=== PATIENT | female | born 1965 | race Caucasian/White ===

== ENCOUNTER 2018-06-29 15:06 | Outpatient (REF) | payer MEDICARE, MEDICAID, SELFPAY ==
[2018-06-29 22:02] LABS: ALT 45 U/L (12-78); AST 42 U/L (15-37); Albumin 3.5 g/dL (3.4-5.0); Alkaline Phosphatase 108 U/L (46-116); Anion Gap 5.9 mmol/L (3-11); BUN 26 mg/dL (7-18); Bilirubin, Total 0.3 mg/dL (0.2-1.0); CO2 28.1 mmol/L (21.0-32.0); CREATININE 1.23 mg/dL (0.55-1.02); Calcium 8.4 mg/dL (8.5-10.1); Chloride 103 mmol/L (98-107); Estimated GFR 45.67 (mL/min/1.73m2); Glucose 85 mg/dL (70-100); Potassium 4.9 mmol/L (3.5-5.1); Sodium 137 mmol/L (136-145); TSH (W/Ref FT4) 29.92 uIU/mL (0.358-3.74)
[2018-06-29 22:30] LABS: HCT 56.6 % (36.0-46.0); Mean Corp. HGB Concentration 34.6 g/dL (32.0-36.0); Mean Corpuscular Hemoglobin 35.4 pg (27.0-33.0); Mean Corpuscular Volume 102.2 fL (80-95); Mean Platelet Volume 11.3 fL (8.0-11.0); Platelet Count 150 x1000/uL (130-400); RBC 5.54 m/cumm (4.00-5.20); RBC Distribution Width 14.5 % (11.7-14.6); White Blood Cell Count 5.53 k/cumm (4.4-10.8)
[2018-06-29 22:34] LABS: HGB 19.6 g/dL (12.0-15.5)
[2018-06-29 22:45] LABS: FREE T4 0.77 ng/dL (0.76-1.46)
== END 2018-06-29 15:07 ==
LOC: NCHCN 15:06
PROVIDERS: PCP Family Medicine; Visit Provider Family Medicine
DX: D64.9 Anemia, unspecified (principal); I27.89 Other specified pulmonary heart diseases; R10.9 Unspecified abdominal pain; E03.9 Hypothyroidism, unspecified
CPT/HCPCS: 80053; 85027; 84439; 84443

== ENCOUNTER 2019-08-31 11:32 | Outpatient (REF) | payer MEDICARE, MEDICAID, SELFPAY ==
--- NOTE | 2019-08-31 10:30 | SKI_PTH ---
PATIENT: ANGELINA VAZQUEZ LOC: [facility] U#:[id number] AGE/SX: 54/F ROOM: RE08/31/[address]: Tasneem Rios V : 1965 BED: DIS: 08/31/2019 SPEC #: [id number] RECD: 09/03/19 12:34 STATUS: NAVYA RELiseth #: [id number] CORAZON: 08/31/19 10:[address]: Tasneem Rios V DEPT: Surgical Specimen RECD BY: Beckie Hart Tissues: 1 - SKIN BIOPSY(SHAVE/PUNCH) Procedures: SKIN LEVEL 4 Comments: [id number]
== END 2019-08-31 11:52 ==
LOC: NCHCN 11:32
PROVIDERS: PCP Family Medicine; Visit Provider Family Medicine
DX: L85.9 Epidermal thickening, unspecified; L98.8 Other specified disorders of the skin and subcutaneous tissue
CPT/HCPCS: 88305

== ENCOUNTER 2019-09-19 00:30 | Outpatient (CLI) | payer MEDICARE, MEDICAID, SELFPAY ==
--- NOTE | 2019-09-19 08:00 | DI.US_ITS ---
EXAM: US ABDOMEN CLINICAL HISTORY: ABD PAIN, R10.9 TECHNIQUE: Ultrasound performed using standard protocol. COMPARISON: ABDOMEN ULTRASOUND (P) from 09/24/2014 FINDINGS: A limited examination was obtained in this patient who is mentally challenged. The aorta is poorly s een. The vena cava is intact. Increased echogenicity is noted in the liver consistent with fatty inf iltration. Portal vein is intact. There is no evidence of a Ruiz's sign. There are apparent smal l gallstones in the dependent portion of the gallbladder. The gallbladder wall is 1.8 mm in thicknes s. The common duct could not be evaluated. The pancreas was not visualized. The spleen measures 8. 9 cm in length and is unremarkable. The kidneys are intact. There is no evidence of abdominal free fluid. IMPRESSION: A limited study reveals what appears to represent small gallstones in the gallbladder. There is nothi ng to suggest biliary obstruction.
== END 2019-09-19 00:50 ==
PROVIDERS: PCP Family Medicine; Visit Provider Family Medicine
DX: R10.9 Unspecified abdominal pain (principal); K80.70 Calculus of gallbladder and bile duct without cholecystitis without obstruction
CPT/HCPCS: 76700

== ENCOUNTER 2020-08-14 14:48 | Outpatient (REF) | payer MEDICARE, MEDICAID, SELFPAY | END 2020-08-14 15:08 | LOC: NCHCN 14:48 | PROVIDERS: PCP Family Medicine; Visit Provider Family Medicine | DX: B37.89 Other sites of candidiasis (principal); Z93.0 Tracheostomy status | CPT/HCPCS: 87077; 87070; 87186; 87205 ==

== ENCOUNTER 2020-10-21 08:23 | Emergency (ER) | payer MEDICARE, MEDICAID, SELFPAY ==
[2020-10-21] VITALS (42 sets, daily range): BP systolic 117–158; BP diastolic 55–130; PULSE 57–128; RESP 11–44; TEMP 36.5; O2SAT 56–95
--- NOTE | 2020-10-21 08:31 | ED.GENADUL_ITS ---
Discharge Plan Disposition Patient Disposition: HOME Condition: Improving Discharge Details Clinical Impression: Vomiting, Hyponatremia, Low thyroid stimulating hormone (TSH) level Primary Care Provider: Tasneem Rios V ED Provider: Maddy Marquez Home Meds and New Rx's Prescriptions: Continued levothyroxine 175 mcg tablet 175 mcg PO DAILY RF: 0 albuterol sulfate 2.5 mg /3 mL (0.083 %) solution for nebulization 2.5 mg IH TID RF: 0 trazodone 50 mg tablet 50 mg PO HS RF: 0 omeprazole [Prilosec] 20 mg capsule,delayed release(DR/EC) 40 mg PO DAILY RF: 0 ibuprofen 600 mg tablet 600 mg PO BID PRNRF: 0 carbamide peroxide [Debrox] 6.5 % drops 5 drp OT DAILY RF: 0 triamcinolone acetonide 0.05 % ointment 1 applic TP BID RF: 0 gvgfazhc-pzfzxfctq-XA Drops,Suspension 4 drp OT QID RF: 0 acetaminophen 500 mg tablet 1,000 mg PO Q6H PRNRF: 0 furosemide 20 mg tablet 20 mg PO DAILY RF: 0 guaifenesin 600 mg tablet extended release 12hr 600 mg PO BID RF: 0 fluconazole [Diflucan] 150 mg tablet 150 mg PO Q3D Qty: 2 RF: 0 allopurinol 100 MG tablet 100 mg PO DAILY RF: 0 Discharge Instructions Instructions: Hyponatremia (ED), Hypothyroidism (ED), Acute Nausea and Vomiting (ED) Additional Instructions: Drink plenty of fluids and get plenty of rest. Try to supplement some salt in your diet with cheese, eggs, etc. Take the Zofran as needed and directed for nausea and vomiting. Call your primary care doctor's office today or tomorrow to schedule a follow-up appointment for reevaluation and to discuss decreasing your Synthroid dosing as you are thyroid hormone level was high and your thyroid-stimulating hormone level was low. Return immediately to the emergency department if you develop any worsening or new concerning symptoms. Discharge Data Discharge Physician: Maddy Marquez Medical Decision Making 09 -- 55-year-old female with a history of Down syndrome, Eisenmenger syndrome, congestive heart failure, hypothyroidism, hyponatremia, seizures, tracheostomy presents for vomiting since last night. Vitals within normal limits. Patient appears nontoxic on arrival. Her abdomen is soft and nontender. She has dry mucous membranes. Differential diagnosis includes acute viral illness, UTI, electrolyte abnormality. History and presentation not consistent with ACS. Will place an IV, bolus IV fluids, screening labs, urinalysis and give fluids and Zofran and reassess. 1100 --labs reviewed. Normal white blood cell count. Sodium 126, was 139 in February 2019. Magnesium 1.2 will replete. Troponin negative. TSH low and free T4 high, likely needs Synthroid decreased. Urinalysis negative for infection. Patient reassessed and guardian states she seems much improved. She was able to take sips of water and has had no further vomiting here. She remains hemodynamically stable. Guardian would prefer patient to go home if possible. Case discussed with hospitalist who recommends doing p.o. challenge with food and rechecking a sodium and if improved to about 130 and patient remains stable, can plan for discharge to home. 1245 --repeat sodium 130. Patient is able to eat yogurt and drink here and no further vomiting. Guardian feels comfortable taking patient home. Also discussed that her Synthroid dose should probably be decreased to 150 mcg daily which guardian states she has at home. Advised to discuss continued dosing with the primary care doctor and for re-evaluation and recheck of her TSH and T4 soon. Usual and customary return precautions given prior to discharge. Medical Records Medical records reviewed: Yes I reviewed the patient's medical records. Lab Data Lab results reviewed: Yes I reviewed the patient's lab results. Labs: Laboratory Tests Range/Units 10/21/20 10/21/20 10/21/20 08:50 08:50 08:50 WBC (4.4-10.8) 10^3/uL 8.09 RBC (3.93-5.22) 10^6/uL 4.78 Hgb (11.2-15.7) g/dL 16.6 H Hct (36.0-46.0) % 46.0 MCV (80-95) fL 96.2 H MCH (27.0-33.0) pg 34.7 H MCHC (32.0-36.0) % 36.1 H RDW (11.7-14.6) % 12.0 Plt Count (130-400) 10^3/uL 151 MPV (8.0-11.0) fL 10.8 Immature Gran % 0.5 Neutrophils % 85.9 Lymphocytes % 6.6 Monocytes % 6.3 Eosinophils % 0.1 Basophils % 0.6 Nucleated RBC % % 0 Absolute Neutrophils (1.2-6.7) 10^3/uL 6.95 H Absolute Lymphocytes (1.2-3.4) 10^3/uL 0.53 L Absolute Monocytes (0.1-0.8) 10^3/uL 0.51 Absolute Eosinophils (0.0-0.7) 10^3/uL 0.01 Absolute Basophils (0.0-0.2) 10^3/uL 0.05 PT (9.3-11.0) sec 12.4 H INR (0.9-1.1) 1.2 H APTT (21.0-27.5) sec 26.2 Sodium (136-145) mmol/L 126 L Potassium (3.5-5.1) mmol/L 4.4 Chloride (98-107) mmol/L 91 L Carbon Dioxide (21.0-32.0) mmol/L 25.1 Anion Gap (3-11) mmol/L 9.9 BUN (7-18) mg/dL 15 Creatinine (0.55-1.02) mg/dL 1.01 Estimated GFR/1.73 m2 (mL/min/1.73m2) 56.91 Glucose (74-106) mg/dL 102 Calcium (8.5-10.1) mg/dL 8.5 Magnesium (1.8-2.4) mg/dL 1.2 L Total Bilirubin (0.2-1.0) mg/dL 0.8 AST (15-37) U/L 40 H ALT (14-59) U/L 44 Alkaline Phosphatase (46-116) U/L 121 H Troponin I (<0.06) ng/mL < 0.05 Total Protein (6.4-8.2) g/dL 7.2 Albumin (3.4-5.0) g/dL 3.2 L TSH (0.36-3.74) uIU/mL Free T4 (0.76-1.46) ng/dL Urine Color (Yellow) Urine Clarity (Clear) Urine pH (5-8) Ur Specific [place] (1.005-1.025) Urine Protein (Negative) mg/dL Urine Ketones (Negative) mg/dL Urine Blood (Negative) Urine Nitrite (Negative) Urine Bilirubin (Negative) Urine Urobilinogen (Up TO 0.2) EU/dL Ur Leukocyte Esterase (Negative) Urine RBC (0-2) HPF Urine WBC (0-5) HPF Ur Epithelial Cells (Negative) HPF Urine Crystals (Negative) HPF Urine Bacteria (Negative) HPF Urine Casts (Negative) LPF Urine Mucus (Negative) Ur Culture Indicated? Urine Glucose (Negative) mg/dL Range/Units 10/21/20 10/21/20 10/21/20 08:56 10:10 12:45 WBC (4.4-10.8) 10^3/uL RBC (3.93-5.22) 10^6/uL Hgb (11.2-15.7) g/dL Hct (36.0-46.0) % MCV (80-95) fL MCH (27.0-33.0) pg MCHC (32.0-36.0) % RDW (11.7-14.6) % Plt Count (130-400) 10^3/uL MPV (8.0-11.0) fL Immature Gran % Neutrophils % Lymphocytes % Monocytes % Eosinophils % Basophils % Nucleated RBC % % Absolute Neutrophils (1.2-6.7) 10^3/uL Absolute Lymphocytes (1.2-3.4) 10^3/uL Absolute Monocytes (0.1-0.8) 10^3/uL Absolute Eosinophils (0.0-0.7) 10^3/uL Absolute Basophils (0.0-0.2) 10^3/uL PT (9.3-11.0) sec INR (0.9-1.1) APTT (21.0-27.5) sec Sodium (136-145) mmol/L 130 L Potassium (3.5-5.1) mmol/L Chloride (98-107) mmol/L Carbon Dioxide (21.0-32.0) mmol/L Anion Gap (3-11) mmol/L BUN (7-18) mg/dL Creatinine (0.55-1.02) mg/dL Estimated GFR/1.73 m2 (mL/min/1.73m2) Glucose (74-106) mg/dL Calcium (8.5-10.1) mg/dL Magnesium (1.8-2.4) mg/dL Total Bilirubin (0.2-1.0) mg/dL AST (15-37) U/L ALT (14-59) U/L Alkaline Phosphatase (46-116) U/L Troponin I (<0.06) ng/mL Total Protein (6.4-8.2) g/dL Albumin (3.4-5.0) g/dL TSH (0.36-3.74) uIU/mL 0.01 L Free T4 (0.76-1.46) ng/dL 1.98 H Urine Color (Yellow) Yellow Urine Clarity (Clear) Clear Urine pH (5-8) 6.5 Ur Specific [place] (1.005-1.025) 1.015 Urine Protein (Negative) mg/dL Trace H Urine Ketones (Negative) mg/dL Negative Urine Blood (Negative) Trace-lysed H Urine Nitrite (Negative) Negative Urine Bilirubin (Negative) Negative Urine Urobilinogen (Up TO 0.2) EU/dL 0.2 Ur Leukocyte Esterase (Negative) Negative Urine RBC (0-2) HPF 3-5 H Urine WBC (0-5) HPF 0-2 Ur Epithelial Cells (Negative) HPF Negative Urine Crystals (Negative) HPF Negative Urine Bacteria (Negative) HPF Rare Urine Casts (Negative) LPF Negative Urine Mucus (Negative) Negative Ur Culture Indicated? No Urine Glucose (Negative) mg/dL Negative HPI General Mode of arrival: ambulatory . Date/Time Provider Initiated Documentation: 10/21/20 08:28 . Limitations to Documentation: no limitations . Information obtained by: patient . HPI Narrative: Patient is a 55-year-old female with a history of Down syndrome, Eisenmenger syndrome, congestive heart failure, hyponatremia resulting in seizures and tracheostomy approximately 10 ye ars ago, with hospital admission at [facility] 2 months ago for aspiration pneumonia who presents with vomiting since last night. Patient guardian who presents with her states that patient started vomiting approximately 9 PM last night which occurred approximately 5 times but was unable to her food from dinner. She states she was unable to sleep from 1 to 5 AM and then vomited approximately 4 times which is mainly clear. She states vomiting in the past has led to hyponatremia and hospital admissions. She denies any recent travel, recent known sick contacts, recent antibiotics, diarrhea, fever, cough, shortness of breath or complaint of chest or abdominal pain. Related Data Home Medications Medication Instructions Recorded Confirmed allopurinol 100 mg PO DAILY 12/05/14 10/21/20 acetaminophen 500 mg tablet 1,000 mg PO Q6H PRN tab 07/01/20 10/21/20 albuterol sulfate 2.5 mg IH TID ml 07/01/20 10/21/20 carbamide peroxide 6.5 % ear drops 5 drp OT DAILY 07/01/20 10/21/20 furosemide 20 mg tablet 20 mg PO DAILY 07/01/20 10/21/20 guaifenesin 600 mg tablet, 600 mg PO BID 07/01/20 10/21/20 extended release 12 hr ibuprofen 600 mg tablet 600 mg PO BID PRN tab 07/01/20 10/21/20 levothyroxine 175 mcg tablet 175 mcg PO DAILY 07/01/20 10/21/20 xfojricp-scekkeufm-zsrlmruok ear 4 drp OT QID 07/01/20 10/21/20 drops,suspension omeprazole 20 mg capsule,delayed 40 mg PO DAILY cap 07/01/20 10/21/20 release trazodone 50 mg tablet 50 mg PO HS tab 07/01/20 10/21/20 triamcinolone acetonide 0.05 % 1 applic TP BID 07/01/20 10/21/20 topical ointment fluconazole 150 mg tablet 150 mg PO Q3D #2 tab 07/04/20 10/21/20 Previous Rx's Medication Instructions Recorded fluconazole 150 mg tablet 150 mg PO Q3D #2 tab 07/04/20 Allergies Allergy/AdvReac Type Severity Reaction Status Date / Time Sulfa (Sulfonamide Allergy Unknown Unverified 10/21/20 09:18 Antibiotics) lorazepam AdvReac Severe Unverified 10/21/20 09:18 Review of Systems All systems reviewed & are unremarkable except as noted in HPI and below Constitutional Constitutional: Reports as per HPI, Denies chills and Denies fever(s) Eyes Eyes: Denies blurry vision ENT Ears, Nose, Mouth, and Throat: Denies dizziness, Denies sore throat and Denies throat swelling Cardiovascular Cardiovascular: Denies chest pain and Denies dyspnea Respiratory Respiratory: Denies cough and Denies dyspnea Gastrointestinal Gastrointestinal: Denies abdominal pain, Denies diarrhea and Reports vomiting Genitourinary Genitourinary: Denies hematuria and Denies dysuria Musculoskeletal Musculoskeletal: Denies back pain and Denies numbness Integumentary/Breasts Skin/Breast: Denies lesions and Denies rash Neurologic Neurologic: Denies dizziness, Denies localized weakness and Denies numbness Allergic/Immunologic Allergic/Immunologic: Denies throat swelling [facility] Medical History (Updated 10/21/20 @ 13:34 by Maddy Marquez DO) Abdominal pain Alopecia areata Anemia Arthritis Congestive heart failure Eisenmengers syndrome ventricular septal defect Fatigue Foot pain, right Gout Hepatitis B Hyponatremia Subluxation of C1/c2 cervical vertebrae, subsequent encounter Tracheostomy in place congenital subglottic stenosis respiratory failure Social History Smoking/Tobacco Use Status: Never Smoking risk assessment performed?: Yes Drug use: Never Exam Const General: cooperative and no acute distress HENMT Head: normal to inspection Face and sinus: normal facial exam Mouth: mucous membranes dry Eyes General: appearance normal, both eyes and all related structures EOM: EOM intact bilaterally Neck Neck: normal visual inspection and No submandibular swelling Lymphatic: no lymphadenopathy noted Chest Chest: normal inspection of the chest and no tenderness Resp Effort & Inspection: normal respiratory effort and able to speak in complete sentences Auscultation: clear to auscultation bilaterally Cardio Rate: regular rate Rhythm: regular rhythm GI Inspection: obesity Palpation: soft, not firm, not rigid and nontender Auscultation: hypoactive bowel sounds Back/Spine/Pelvis Thoracic/Lumbar Spine: thoracic and lumbar spine normal to inspection Skin General skin exam: no rashes or lesions noted Neuro General: patient alert and patient awake Motor: muscle tone normal throughout Sensory Exam: no sensory deficits noted Extrem General: normal to inspection, full ROM, capillary refill normal, no calf tenderness bilaterally and no edema Psych Appearance: grossly normal
--- NOTE | 2020-10-21 08:51 | RESPIRATORY ---
Pt has a 5.0 bivona cuffless trach with no cap or O2 in use. Caregiver says trach has been in place since pt was 10yrs old. She does not currently use O2 and they are waiting on home care company for humidity device. Sx set up if needed, no airway concerns at this time, and trach site looks well maintained. Pt has very cold hands, not a good reading sp02 @ 84 which caregiver says is her baseline
[2020-10-21] MEDS: Normal Saline 1,000 ML 1000 ML IV (09:00)
[2020-10-21 09:01] LABS: Abs Immature Grans 0.04 10^3/uL (0.0-0.06); Absolute Basophil Count 0.05 10^3/uL (0.0-0.2); Absolute Eosinophil Count 0.01 10^3/uL (0.0-0.7); Absolute Lymphocyte Count 0.53 10^3/uL (1.2-3.4); Absolute Monocyte Count 0.51 10^3/uL (0.1-0.8); Absolute Neutrophil Count 6.95 10^3/uL (1.2-6.7); Basophils % 0.6; Eosinophils % 0.1; HGB 16.6 g/dL (11.2-15.7); Immature Grans % 0.5; Lymphocytes % 6.6; MCH 34.7 pg (27.0-33.0); MCHC 36.1 % (32.0-36.0); MCV 96.2 fL (80-95); MPV 10.8 fL (8.0-11.0); Monocytes % 6.3; Neutrophils % 85.9; Nucleated RBC 0 %; Platelet Count 151 10^3/uL (130-400); RBC 4.78 10^6/uL (3.93-5.22); WBC 8.09 10^3/uL (4.4-10.8)
[2020-10-21] MEDS: Ondansetron 4 MG/2 ML VIAL IVP (09:05)
[2020-10-21 09:14] LABS: INR 1.2 (0.9-1.1); PTT Activated 26.2 sec (21.0-27.5); Prothrombin Time 12.4 sec (9.3-11.0)
[2020-10-21 09:19] LABS: ALT 44 U/L (14-59); AST 40 U/L (15-37); Albumin 3.2 g/dL (3.4-5.0); Alkaline Phosphatase 121 U/L (46-116); Anion Gap 9.9 mmol/L (3-11); BUN 15 mg/dL (7-18); Bilirubin, Total 0.8 mg/dL (0.2-1.0); CO2 25.1 mmol/L (21.0-32.0); CREATININE 1.01 mg/dL (0.55-1.02); Calcium 8.5 mg/dL (8.5-10.1); Chloride 91 mmol/L (98-107); Estimated GFR 56.91 (mL/min/1.73m2); Glucose 102 mg/dL (74-106); Magnesium 1.2 mg/dL (1.8-2.4); Potassium 4.4 mmol/L (3.5-5.1); Sodium 126 mmol/L (136-145); Total Protein 7.2 g/dL (6.4-8.2); Troponin I < 0.05 ng/mL (<0.06)
[2020-10-21] MEDS: MAGNESIUM SULFATE 2 GM/50 ML BAG IVPB (09:41)
[2020-10-21 09:49] LABS: TSH (W/Ref FT4) 0.01 uIU/mL (0.36-3.74)
[2020-10-21 10:06] LABS: FREE T4 1.98 ng/dL (0.76-1.46)
[2020-10-21 10:17] LABS: Bilirubin Negative (Negative); Blood Trace-lysed (Negative); Clarity Clear (Clear); Glucose Negative (Negative); Ketones Negative (Negative); Leukocyte Esterase Negative (Negative); Nitrite Negative (Negative); Specific Gravity 1.015 (1.005-1.025); Urobilinogen 0.2 EU/dL (Up TO 0.2); pH 6.5 (5-8)
[2020-10-21 10:24] LABS: WBC 0-2 HPF (0-5)
[2020-10-21 10:25] LABS: Bacteria Rare HPF (Negative); C & S Indicated? No; Casts Negative LPF (Negative); Crystals Negative HPF (Negative); Epithelial Cells Negative HPF (Negative); Mucus Negative (Negative)
[2020-10-21 12:57] LABS: Sodium 130 mmol/L (136-145)
[2020-10-21] MEDS: Ondansetron O.D.T. 4 MG TABEF, 3 TABS/BTL PO (13:50)
== END 2020-10-21 13:50 | disposition home or self-care (01) ==
PROVIDERS: Emergency Provider Physician Assistant; PCP Family Medicine
DX: E87.1 Hypo-osmolality and hyponatremia (principal); R11.2 Nausea with vomiting, unspecified; R94.6 Abnormal results of thyroid function studies; Q90.9 Down syndrome, unspecified; Z93.0 Tracheostomy status; E03.9 Hypothyroidism, unspecified; E83.42 Hypomagnesemia
CPT/HCPCS: 36415; 80053; 96361; 96365; 96366; 96375; 99284; 81003; 81015; 83735; 84295; 84439; 84443; 84484; 85025; 85610; 85730; J2405

== ENCOUNTER 2021-02-13 22:11 | Outpatient (REF) | payer MEDICARE, MEDICAID, SELFPAY ==
[2021-02-13 19:15] LABS: Anion Gap 11.9 mmol/L (3-11); BUN 23 mg/dL (7-18); CO2 24.1 mmol/L (21.0-32.0); CREATININE 1.1 mg/dL (0.55-1.02); Calcium 9.2 mg/dL (8.5-10.1); Chloride 106 mmol/L (98-107); Estimated GFR 51.57 (mL/min/1.73m2); Glucose 86 mg/dL (74-106); Magnesium 1.7 mg/dL (1.8-2.4); Potassium 4.7 mmol/L (3.5-5.1); Sodium 142 mmol/L (136-145); TSH (W/Ref FT4) 0.01 uIU/mL (0.36-3.74)
[2021-02-13 19:40] LABS: FREE T4 1.88 ng/dL (0.76-1.46)
== END 2021-02-13 22:12 | disposition home or self-care (01) ==
LOC: NCHCN 22:11
PROVIDERS: PCP Family Medicine; Visit Provider Family Medicine
DX: E87.1 Hypo-osmolality and hyponatremia (principal); E83.42 Hypomagnesemia
CPT/HCPCS: 80048; 83735; 84439; 84443

== ENCOUNTER 2021-06-06 20:00 | Emergency (ER) | payer MEDICARE, MEDICAID, SELFPAY ==
--- NOTE | 2021-06-06 20:07 | ED.GENADUL_ITS ---
Discharge Plan Disposition Patient Disposition: [facility] [place] Condition: Stable Discharge Details Clinical Impression: Hypoxemia, Congestive heart failure, Eisenmengers syndrome Primary Care Provider: Tasneem Rios V ED Provider: Travis Mcdaniel [place] Meds and New Rx's Prescriptions: No Action albuterol sulfate 2.5 mg /3 mL (0.083 %) solution for nebulization 2.5 mg IH TID RF: 0 trazodone 50 mg tablet 50 mg PO HS RF: 0 ibuprofen 600 mg tablet 600 mg PO BID PRNRF: 0 carbamide peroxide [Debrox] 6.5 % drops 5 drp OT DAILY RF: 0 triamcinolone acetonide 0.05 % ointment 1 applic TP BID RF: 0 cekwesxw-uoekdqheu-NV Drops,Suspension 4 drp OT QID RF: 0 acetaminophen 500 mg tablet 1,000 mg PO Q6H PRNRF: 0 guaifenesin 600 mg tablet extended release 12hr 600 mg PO BID RF: 0 allopurinol 100 MG tablet 100 mg PO DAILY RF: 0 NyQuil 7.5-60-30-1,000 mg/30 mL Liquid PO PRN PRNRF: 0 levothyroxine 150 mcg tablet 150 mcg PO DAILY AM RF: 0 sertraline 25 mg tablet 25 mg PO HS RF: 0 levofloxacin 750 mg tablet 750 mg PO DAILY AM RF: 0 Medical Decision Making Patient brought in for evaluation of difficulty breathing and desaturations especially with ambulation/exertion. Started on Levaquin by PCP but no report of fever and only slight cough. Known cardiac problems with VSD resulting in pulmonary hypertension. Lungs remarkably clear. Saturations on patient here in the 70s. At times as low and mid to high 60s with finger cyanosis noted. Respiratory therapy suctioned trach a couple of times with minimal secretions. Patient will intermittently leave oxygen trach mask in place. IV, labs and CXR ordered. EKG ordered but patient not tolerant of leaving leads on. Labs with normal white count. Hgb up at 17.5 and platelets low at 105. Lytes except Na and Mg okay. Creatinine 1.1. Trop negative. D-dimer and BNP elevated. CXR with cardiomegaly and probable edema. Due to positive d-dimer CTA ordered. Patient required versed for CT. EKG also obtained then. Patient with no complications and while resting/sedated noted to have RR in mid 20 range with saturations of high 70s on oxygen by trach mask. CTA is negative for PE. Evidence of right side failure and pulmonary HTN. No definite infilitrate or pneumonia. Visualized opacities felt due to hypoventilation. We do not have CPAP/ventilator compatible with her size trach if ventilatory support needed. Patient complicated medical history. Discussed with ICU team at [facility]. This is likely CHF related. No definite evidence of infection. Hold antibiotics. Give Lasix and transfer to [facility] for ICU evaluation/management. Medical Records Medical records reviewed: Yes I reviewed the patient's medical records. Lab Data Lab results reviewed: Yes I reviewed the patient's lab results. ECG Data Attestation: I personally reviewed and interpreted this ECG (s) as follows: Prior ECG tracings: not available for review Interpretation: see EKG HPI General Mode of arrival: wheelchair . Date/Time Provider Initiated Documentation: 06/06/21 20:04 . Information obtained by: family, RN notes reviewed and old records reviewed . HPI Narrative: Patient brought to ED by [facility] for evaluation of difficulty breathing. Patient is nonverbal and has history of Down syndrome. She is also trached with previous history of subglottic stenosis and tracheomalacia. She has a known unrepaired VSD with resulting Eisenmengers syndrome. Motor Winder reports symptoms started earlier this week. Patient started on Levaquin by primary care over the phone last night with first dose given. This evening patient noted to be very short of breath and had significant difficulty getting to the bathroom with multiple stops for shortness of breath and desaturation. There is no report of fever. She has not eaten much in the last couple of days due to the difficulty breathing. She does continue to drink. She does not seem to have any pain. Her baseline normal saturations are mid 80s. Related Data Home Medications Medication Instructions Recorded Confirmed allopurinol 100 mg PO DAILY 12/05/14 06/06/21 acetaminophen 500 mg tablet 1,000 mg PO Q6H PRN tab 07/01/20 06/06/21 albuterol sulfate 2.5 mg IH TID ml 07/01/20 06/06/21 carbamide peroxide 6.5 % ear drops 5 drp OT DAILY 07/01/20 06/06/21 guaifenesin 600 mg tablet, 600 mg PO BID 07/01/20 06/06/21 extended release 12 hr ibuprofen 600 mg tablet 600 mg PO BID PRN tab 07/01/20 06/06/21 hefirqur-yzdyfbjkc-wlfijuppb ear 4 drp OT QID 07/01/20 06/06/21 drops,suspension trazodone 50 mg tablet 50 mg PO HS tab 07/01/20 06/06/21 triamcinolone acetonide 0.05 % 1 applic TP BID 07/01/20 06/06/21 topical ointment csnuijapy-ANN-IN-acetaminophen ml PO PRN PRN 06/06/21 [NyQuil] levothyroxine 150 mcg PO DAILY AM 06/06/21 06/06/21 sertraline 25 mg PO HS 06/06/21 06/06/21 levofloxacin 750 mg PO DAILY AM 06/07/21 06/07/21 Allergies Allergy/AdvReac Type Severity Reaction Status Date / Time Sulfa (Sulfonamide Allergy Unknown Unverified 06/06/21 20:18 Antibiotics) lorazepam AdvReac Severe Unverified 06/06/21 20:18 General VIDYA: 2 Review of Systems Narrative: not obtained; patient nonverbal with Down syndrome [facility] Medical History (Updated 06/07/21 @ 02:24 by Travis Mcdaniel MD) Alopecia areata Anemia Arthritis Congenital heart disease Ventricular septal defect and shunt (Eisenmenger syndrome).She has been followed by Dr. Castle, Cardiology Service at [facility]. She has baseline 02 sdats of 84%. Congestive heart failure Down Syndrome Non verbal with developmental delay. Eisenmengers syndrome ventricular septal defect Gastroesophageal reflux disease Gout Hepatitis B Hypothyroidism On replacement therapy. Subluxation of C1/c2 cervical vertebrae, subsequent encounter Tracheostomy in place congenital subglottic stenosis respiratory failure Social History Smoking/Tobacco Use Status: Never Smoking risk assessment performed?: Yes Drug use: Never Do you feel safe at home: Yes Do you feel safe in your relationship?: Yes Exam Narrative Exam Narrative: Const: Small middle aged female in no apparent distress. HEENT: NC/AT. Eyes: Normal conjunctiva and sclera. Neck: Supple. Tracheostomy present. Lungs: Tachypneic. Lungs are mostly clear with few rales/rhonchi Cor: RRR with murmur. Good radial pulses. GI: Soft. NT/ND. No guarding or rebound. Neuro: Awake, alert and baseline. Cranial nerves II - XII grossly intact. No gross motor or sensory deficit. Ext: No C/C/E. Skin: Warm and dry. Critical Care Time Critical Care Time Critical Care Time: Yes Total Critical Care Time: 60 Attestation: Upon my evaluation, this patient had a high probability of imminent or life-threatening deterioration, which required my direct attention, intervention, and personal management. I have personally provided 60 minutes of critical care time exclusive of time spent on separately billable procedures. Time includes review of laboratory data, radiology results, discussion with consultants, and monitoring for potential decompensation. Interventions were performed as documented above.
[2021-06-06 20:10] VITALS: BP 122/82; PULSE 70; RESP 20; TEMP 36.6; O2SAT 73
--- NOTE | 2021-06-06 20:30 | RT.EKG_ITS ---
APPROVED REPORT Exam: Resting ECG Reason for Exam: SOB Patient Location: E HR:53 bpm ECG Measurements Heart Rate 53 AXIS MI 284 P 0 QRSd 107 QRS 206 QT 505 T 217 QTc 476 Conclusion Sinus bradycardia...rate< 60 Nonspecific T abnormalities, lateral leads...T <-0.10mV, I aVL V5 V6 I have reviewed and interpreted ECG and agree with software generated interpretation.
--- NOTE | 2021-06-06 20:30 | DI.RAD_ITS ---
Exam(s) XR CHEST 2V PA LATERAL EXAM: XR CHEST 2V PA LATERAL CLINICAL HISTORY: SOB TECHNIQUE: 2D digital imaging was performed. COMPARISON: No exams were available for comparison FINDINGS: MEDIASTINUM: The tracheostomy tube is in good position. HEART: Cardiomegaly. PULMONARY VASCULATURE: Prominent central pulmonary vasculature. LUNGS: No focal consolidating infiltrates. PLEURAL SPACE: No pleural effusion or pneumothorax. BONE:Within normal limits for the patient's age. OTHER FINDINGS:Normal. IMPRESSION: 1. Cardiomegaly. 2. Findings suspicious for vascular congestion and mild pulmonary edema. DATA REPOSITORY: RADIATION DOSE DELIVERED:
[2021-06-06 21:18] LABS: Abs Immature Grans 0.03 10^3/uL (0.0-0.06); Absolute Basophil Count 0.08 10^3/uL (0.0-0.2); Absolute Eosinophil Count 0.06 10^3/uL (0.0-0.7); Absolute Lymphocyte Count 0.53 10^3/uL (1.2-3.4); Absolute Monocyte Count 0.46 10^3/uL (0.1-0.8); Absolute Neutrophil Count 3.89 10^3/uL (1.2-6.7); Basophils % 1.6; Eosinophils % 1.2; HCT 53.6 % (36.0-46.0); HGB 17.5 g/dL (11.2-15.7); Immature Grans % 0.6; Lymphocytes % 10.5; MCH 33.2 pg (27.0-33.0); MCHC 32.6 % (32.0-36.0); MCV 101.7 fL (80-95); MPV 11.9 fL (8.0-11.0); Monocytes % 9.1; Nucleated RBC 0 %; Platelet Count 105 10^3/uL (130-400); RBC 5.27 10^6/uL (3.93-5.22); RDW 13.8 % (11.7-14.6); RDW-SD 52.3 fL; WBC 5.05 10^3/uL (4.4-10.8)
--- NOTE | 2021-06-06 21:20 | DI.VRAD_ITS ---
PROCEDURE INFORMATION: Exam: XR Chest Exam date and time: 06/06/2021 8:35 PM Age: 56 years old Clinical indication: Other: Aspiration TECHNIQUE: Imaging protocol: XR of the chest. Views: 2 views. COMPARISON: CR CHEST 2 VIEWS PA,LAT 04/14/2015 1:06 PM FINDINGS: Tubes, catheters and devices: Tracheostomy tube in adequate position. Lungs: Patchy airspace disease within the pulmonary bases and prominent central pulmonary vasculature. Pleural spaces: Unremarkable. No pleural effusion. No pneumothorax. Heart/Mediastinum: The heart is moderately enlarged. Bones/joints: Unremarkable. IMPRESSION: Findings suspicious for vascular congestion and mild bilateral pulmonary edema. Dictated and Authenticated by: Higinio Mccann MD. Ordering:MISTY Robles MD
[2021-06-06 21:36] VITALS: PULSE 70; O2SAT 90
[2021-06-06 21:37] VITALS: O2SAT 6
[2021-06-06 22:00] LABS: ALT 48 U/L (14-59); AST 49 U/L (15-37); Albumin 2.6 g/dL (3.4-5.0); Alkaline Phosphatase 177 U/L (46-116); Anion Gap 9.5 mmol/L (3-11); BUN 19 mg/dL (7-18); Bilirubin, Total 0.5 mg/dL (0.2-1.0); CO2 21.5 mmol/L (21.0-32.0); CREATININE 1.1 mg/dL (0.55-1.02); Calcium 7.5 mg/dL (8.5-10.1); Chloride 98 mmol/L (98-107); Estimated GFR 51.38 (mL/min/1.73m2); Glucose 121 mg/dL (74-106); Magnesium 1.4 mg/dL (1.8-2.4); NT-proBNP 2299 pg/mL (<300); Sodium 129 mmol/L (136-145); Total Protein 6.9 g/dL (6.4-8.2); Troponin I < 0.05 ng/mL (<0.06)
[2021-06-06 22:20] LABS: D-Dimer 1615 ng/mlFEU (<500)
--- NOTE | 2021-06-06 22:30 | DI.CT_ITS ---
Exam(s) CT CHEST PE CTA EXAM: CT CHEST PE CTA CLINICAL HISTORY: SOB with + Ddimer. TECHNIQUE: Imaging Protocol: Axial CT angiography was performed with multi-slice acquisition and mu lti-planar and/or 3D reconstructions. CONTRAST MATERIAL: Intravenous: Omnipaque 350 Contrast volume:60 mL COMPARISON: CR,XR XR CHEST 2V PA LATERAL from 06/06/2021 FINDINGS: The examination is limited due to patient motion artifact. Tracheobronchial tree: There is a tracheostomy tube in place. Pulmonary parenchyma: There is a 5 mm pulmonary nodule in the right middle lobe. No focal consolidat ing infiltrates in the lung bases to correspond to the chest x-ray. No architectural distortion. The re is poor inspiration. Pulmonary Arteries: No evidence of filling defect to suggest pulmonary emboli. There is dilation of t he main pulmonary artery suggesting pulmonary artery hypertension. Mediastinum and Ray: There are enlarged mediastinal lymph nodes in the AP window. The largest measu res 1.7 cm. Pleura: There is a small right pleural effusion. No pneumothorax. Heart: Cardiomegaly. No coronary artery calcifications are seen. No pericardial effusion. Aorta: Thoracic aorta non-dilated. No dissection. Atherosclerosis. Upper abdomen: Cholelithiasis. Soft tissues: There is a 4.2 cm mass in the subcutaneous tissues of the left back. It is predominant ly fat density. Bones: Normal. IMPRESSION: 1. No evidence of pulmonary embolism, thoracic aortic dissection or aneurysm. 2. No focal consolidating infiltrates. 3. 5 mm pulmonary nodule in the right middle lobe. For high risk patients, (history of smoking or ot her risk factors), a follow-up chest x-ray in 12 months is recommended. For low risk patients, no fo llow-up is recommended. 4. Findings of pulmonary artery hypertension. 5. Cholelithiasis. 6. 4.2 cm predominantly fat density mass in the subcutaneous tissues of the left back. Ultrasound in or MRI may be obtained for further evaluation. RADIATION DOSE DELIVERED: 611.34mGy.cm Total DLP DATA REPOSITORY: All CT scans at this facility are submitted to the National Radiology Data Registry (NRDR) Dose Index Registry (DIR) with the [employer] ([employer]). RADIATION OPTIMIZATION: All CT scans at this facility use at least one of these dose optimization te chniques: automated exposure control; mA and/or kV adjustment per patient size (includes targeted exa ms where dose is matched to clinical indication); or iterative reconstruction.
[2021-06-06] MEDS: Midazolam 2 MG/2 ML VIAL IVP ×2 (23:00→23:15)
[2021-06-06 23:05] VITALS: PULSE 77; O2SAT 77
[2021-06-06] MEDS: MAGNESIUM SULFATE 2 GM/50 ML BAG IVPB (23:10)
[2021-06-07] VITALS (28 sets, daily range): BP systolic 90–138; BP diastolic 52–102; PULSE 46–58; RESP 12–27; TEMP 36.3; O2SAT 71–86
[2021-06-07] MEDS: Midazolam 2 MG/2 ML VIAL IVP (00:02)
--- NOTE | 2021-06-07 00:11 | DI.VRAD_ITS ---
PROCEDURE INFORMATION: Exam: CTA Chest With Contrast Exam date and time: 06/06/2021 10:33 PM Age: 56 years old Clinical indication: Shortness of breath; Patient HX: SOB with elevated ddimer TECHNIQUE: Imaging protocol: Computed tomographic angiography of the chest with contrast. 3D rendering (Not supervised by radiologist): MIP and/or 3D reconstructed images were created by the technologist. COMPARISON: CR XR CHEST 2V PA LATERAL 06/06/2021 8:52 PM FINDINGS: Tubes, catheters and devices: Tracheostomy in adequate position. Pulmonary arteries: The main pulmonary artery is dilated measuring 3.9 cm compatible with pulmonary hypertension. No evidence of pulmonary embolism. Aorta: Unremarkable. No aortic aneurysm. No aortic dissection. Veins: There is significant reflux of contrast from the right heart into the hepatic veins compatible with right heart failure. Lungs: Diffuse patchy subtle areas of haziness throughout the lungs most likely secondary to under ventilation. Ground-glass opacification of the right apex (series 9, image 52). The suspected infiltrate within the right pulmonary base is not confirmed and likely representing crowding of prominent pulmonary vessels. Pleural spaces: Minimal right pleural effusion. Heart: Unremarkable. No cardiomegaly. No pericardial effusion. Lymph nodes: Mildly enlarged prevascular lymph nodes largest measuring 1 cm in short axis. No evidence of axillary or hilar lymphadenopathy Gallbladder and bile ducts: Dependent hyperdense material within the neck of the gallbladder compatible with gravel/small stones. Bones/joints: Unremarkable. No acute fracture. Soft tissues: There is a well-circumscribed heterogeneous subcutaneous mass within the left back measuring 4.2 cm (series 4, image 33). Other findings: The study is limited by motion artifact. IMPRESSION: 1. No evidence of pulmonary embolism. 2. Pulmonary hypertension and evidence of right heart failure. 3. Right upper lobe ground-glass opacity most likely secondary to an homogeneous ventilation of the lungs. However, an infiltrate cannot be completely excluded. 4. Gallstones/gravel. 5. Left back subcutaneous 4.2 cm soft tissue mass of uncertain etiology. Further characterization with ultrasound and/or MRI may be performed. Dictated and Authenticated by: Higinio Mccann MD. Ordering:MISTY Robles MD
[2021-06-07 01:20] LABS: COVID-19 PCR Negative (Negative)
[2021-06-07] MEDS: Furosemide 20 MG/2 ML VIAL IVP (02:05)
[2021-06-07 02:31] LABS: BE (Venous) -2 mmol/L (-2-3); HCO3 (Venous) 24 mmol/L (23-28); O2 Sat (Venous) 57 %; TCO2 (Venous) 21 mmol/L (24-29); pCO2 (Venous) 43 mmHg (41-51); pH (Venous) 7.35 (7.31-7.41); pO2 (Venous) 33 mmHg
== END 2021-06-07 03:05 | disposition short-term general hospital (02) ==
PROVIDERS: Emergency Provider Emergency Medicine; PCP Family Medicine
DX: R09.02 Hypoxemia (principal); I50.810 Right heart failure, unspecified; I27.83 Eisenmenger's syndrome; R79.89 Other specified abnormal findings of blood chemistry; Z20.822 Contact with and (suspected) exposure to COVID-19; Z03.818 Encounter for observation for suspected exposure to other biological agents ruled out; Z93.0 Tracheostomy status
CPT/HCPCS: 36415; 71275; 80053; 82805; 87635; 93005; 96365; 96366; 96375; 99291; 71046; 83735; 83880; 84484; 85025; 85379; 93010; J1941; J2250